=== PATIENT | female | born 1965 | race Caucasian/White ===

== ENCOUNTER → 2018-11-07 | Outpatient (CLI) | payer OTHER | END | disposition home or self-care (01) | LOC: US 11:47 | PROC: BW4GZZZ Ultrasonography of Pelvic Region (ICD-10-PCS; principal; 2018-11-07) | DX: R31.9 Hematuria, unspecified (principal) ==

== ENCOUNTER → 2018-12-02 | Outpatient (CLI) | payer OTHER ==
[2018-11-26 10:34] LABS: BASOPHIL % 0.7 % (0-2); PLATELET COUNT 332 x10^3mcL (130-400); RED CELL DISTRIBUTION WIDTH 14.4 % (11.5-14.5)
[2018-11-26 10:41] LABS: CALCIUM 9.2 mg/dL (8.5-10.1); CARBON DIOXIDE 30.1 mmol/L (21-32); CHLORIDE SERUM 107 mmol/L (98-107); CREATININE SERUM 0.8 mg/dL (0.6-1.0); GFR1 > 60 mL/min; GLUCOSE SERUM 100 mg/dL (74-106); POTASSIUM SERUM 4.9 mmol/L (3.5-5.1); SODIUM SERUM 143 mmol/L (136-145)
== END | disposition home or self-care (01) ==
LOC: CT 08:29
PROC: BW211ZZ Computerized Tomography (CT Scan) of Abdomen and Pelvis using Low Osmolar Contrast (ICD-10-PCS; principal; 2018-12-02)
DX: R31.1 Benign essential microscopic hematuria (principal)
CPT/HCPCS: Q9967

== ENCOUNTER 2019-07-08 05:59 | Day surgery (SDC) | payer OTHER ==
[2019-07-04 10:39] LABS: CALCIUM 8.9 mg/dL (8.5-10.1); CHLORIDE SERUM 107 mmol/L (98-107); CREATININE SERUM 0.7 mg/dL (0.6-1.0); GFR1 > 60 mL/min; GLUCOSE SERUM 101 mg/dL (74-106); SODIUM SERUM 140 mmol/L (136-145)
[2019-07-04 10:49] LABS: BASOPHIL % 0.4 % (0-2); PLATELET COUNT 323 x10^3mcL (130-400); RED CELL DISTRIBUTION WIDTH 13.4 % (11.5-14.5)
[~2019-07-08] VITALS: Ht 162.6 cm; Wt 69.8 kg
[2019-07-08 06:27] VITALS: BP 109/76
[2019-07-08 09:54] VITALS: BP 103/54
== END 2019-07-08 09:25 | disposition home or self-care (01) ==
LOC: DS 05:59 → OR 07:30 → DS 07:30
PROVIDERS: Ophthalmology
DX: H25.12 Age-related nuclear cataract, left eye (principal); Z90.49 Acquired absence of other specified parts of digestive tract; Z98.890 Other specified postprocedural states; Z79.899 Other long term (current) drug therapy
CPT/HCPCS: C1780; J2001; J2250; J3010

== ENCOUNTER 2019-10-14 06:13 | Day surgery (SDC) | payer OTHER ==
[2019-10-09 14:42] LABS: BASOPHIL % 0.4 % (0-2); PLATELET COUNT 339 x10^3mcL (130-400); RED CELL DISTRIBUTION WIDTH 14.4 % (11.5-14.5)
[2019-10-09 14:50] LABS: CARBON DIOXIDE 29.6 mmol/L (21-32); CHLORIDE SERUM 106 mmol/L (98-107); GFR1 > 60 mL/min; GLUCOSE SERUM 99 mg/dL (74-106); POTASSIUM SERUM 4.3 mmol/L (3.5-5.1); SODIUM SERUM 143 mmol/L (136-145)
[~2019-10-14] VITALS: Ht 266.7 cm; Wt 74.8 kg
[2019-10-14 06:41] VITALS: BP 114/69
[2019-10-14 09:55] VITALS: BP 110/56
== END 2019-10-14 09:40 | disposition home or self-care (01) ==
LOC: DS 06:13 → OR 07:30 → DS 09:40
PROVIDERS: Ophthalmology
DX: H25.11 Age-related nuclear cataract, right eye (principal)
CPT/HCPCS: C1780; J1885; J2001; J2250; J2405; J2765; J3010

== ENCOUNTER → 2020-02-09 | Outpatient (CLI) | payer OTHER | END | disposition home or self-care (01) | LOC: MA 08:59 | PROC: BH02ZZZ Plain Radiography of Bilateral Breasts (ICD-10-PCS; principal; 2020-02-09) | DX: G44.329 Chronic post-traumatic headache, not intractable (principal); M54.2 Cervicalgia; Z12.31 Encounter for screening mammogram for malignant neoplasm of breast | CPT/HCPCS: 77067 ==

== ENCOUNTER → 2020-04-12 | Outpatient (CLI) | payer OTHER | END | disposition home or self-care (01) | LOC: MA 08:34 | PROC: BH00ZZZ Plain Radiography of Right Breast (ICD-10-PCS; principal; 2020-04-12) | PROC: BR20ZZZ Computerized Tomography (CT Scan) of Cervical Spine (ICD-10-PCS; 2020-04-12) | DX: R92.0 Mammographic microcalcification found on diagnostic imaging of breast (principal); R93.89 Abnormal findings on diagnostic imaging of other specified body structures | CPT/HCPCS: 77065 ==